=== PATIENT | female | born 1995 | race Two or more races ===

== ENCOUNTER 2024-03-06 16:58 | Observation (INO) | payer MEDICAID, OTHER ==
[~2024-03-06] VITALS: Ht 172.7 cm; Wt 99.8 kg
[2024-03-06 18:45] LABS: Urine Bacteria FEW /hpf (None Seen); Urine Blood 2+ /uL (Negative); Urine Clarity Turbid (Clear); Urine Color Yellow (Yellow); Urine Mucus FEW (None Seen); Urine Protein, UAD 1+ (Negative); Urine Specific Gravity 1.031 (1.001-1.035); Urine Urobilinogen Normal (Negative); Urine WBC 283 /hpf (0 - 5); Urine WBC Clumps PRESENT /hpf (None Seen)
[2024-03-06 18:49] LABS: Amphetamine Screen, Urine Neg (NEGATIVE); Barbiturate Scree,Urine Neg (NEGATIVE); Benzodiazephine Screen, Urine Neg (NEGATIVE); Cannabinoid Screen, Urine Neg (NEGATIVE); Cocaine Screen, Urine Neg (NEGATIVE); Opiate Scree,Urine Neg (NEGATIVE); Phencyclidine Screen, Urine Neg (NEGATIVE)
[2024-03-06 18:51] LABS: Vaginal Trichomonas Present
[2024-03-06 18:52] LABS: Vaginal Bacteria Few; Vaginal Clue Cells None Seen; Vaginal Epithelial Cells Few
[2024-03-06 19:07] LABS: Basophils # (auto) 0 10 ^3/uL (0-0.2); Basophils % (auto) 0.2 % (0.0-2.0); Eosinophils # (auto) 0.1 10 ^3/uL (0-0.8); Hematocrit 40.6 % (36.0-46.0); Hemoglobin 13.5 g/dL (12.2-16.2); Lymphocytes # (auto) 1.7 10 ^3/uL (0.4-5.4); Mean Corpuscular Hemoglobin 29.9 pg (28.0-32.0); Mean Corpuscular Hgb Conc. 33.4 g/dL (32.0-36.0); Mean Corpuscular Volume 89.8 fL (80.0-100.0); Monocytes # (auto) 0.6 10 ^3/uL (0-1.3); Monocytes % (auto) 6.3 % (0.0-12.0); Neutrophils % (auto) 74.5 % (37.0-80.0); Nucleated Red Blood Cells % 0.1 %; Red Blood Cells 4.52 10^6/uL (4.0-5.20); Red Cell Distribution Width 13.7 % (11.8-14.3); White Blood Cell 9.4 10^3/uL (4.4-10.8)
[2024-03-06 19:22] LABS: INR 0.95 (0.9-1.15); Partial Thromboplastin Time 24.1 SEC (24.5-34.5); Prothrombin Time 10.1 sec (9.3-11.8)
[2024-03-06 19:24] LABS: Alkaline Phosphatase 142 U/L (46-116); Anion Gap 8 (5-15); Aspartate Aminotransferase 19 U/L (13-40); BUN/Creatinine Ratio 13.6 (10.0-20.0); Bilirubin, Total 0.9 mg/dL (0.2-1.0); Blood Urea Nitrogen 8 mg/dL (9-23); Calcium 9.2 mg/dL (8.5-10.1); Carbon Dioxide 21 mmol/L (20-30); Chloride 109 mmol/L (98-107); Glucose 112 mg/dL (74-106); Potassium 4.1 mmol/L (3.5-5.1); Sodium 138 mmol/L (136-145); Total Protein 6.6 g/dL (5.7-8.2)
[2024-03-06 19:25] LABS: Alanine Aminotransferase 9 U/L (7-40)
[2024-03-06] MEDS: metroNIDAZOLE 500 MG TAB PO ONE (19:53)
[2024-03-08 10:06] LABS: Rubella Antibodies, IgG <0.90 index (Immune >0.99)
[2024-03-08 12:06] LABS: QuantiFERON-TB Gold Plus Negative (Negative)
[2024-03-08 21:06] LABS: Chlamydia Trachomatis, NAA Positive (Negative); Neisseria gonorrhoeae, NAA Negative (Negative)
== END 2024-03-06 20:02 | disposition home or self-care (01) ==
LOC: LDRP 16:58
PROVIDERS: ADMIT Obstetrics & Gynecology; ATTEND Obstetrics & Gynecology
DX: O47.1 False labor at or after 37 completed weeks of gestation (principal); O26.853 Spotting complicating pregnancy, third trimester; O98.313 Other infections with a predominantly sexual mode of transmission complicating pregnancy, third trimester; A59.9 Trichomoniasis, unspecified; Z3A.40 40 weeks gestation of pregnancy; Z87.891 Personal history of nicotine dependence; Z79.899 Other long term (current) drug therapy
CPT/HCPCS: 36415; 59025; 76805; 76818; 80053; 80307; 81001; 81002; 83036; 85025; 85610; 85730; 86592; 86703; 86762; 86850; 86900; 86901; 87081; 87210; 87340; 87491; 87591; 94760; G0378